=== PATIENT | female | born 2005 | race Hispanic/Latino ===

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

== ENCOUNTER 2025-08-29 22:17 | Emergency (ER) | payer SELFPAY ==
[~2025-08-29] VITALS: Ht 162.6 cm; Wt 104.3 kg
[2025-08-29] MEDS: NEOMY SULF/BACITRA/POLYMYXIN B 1 EACH PACKET TP ONE (22:58)
[2025-08-29] MEDS: HYDROcodone/APAP 5/325 1 TAB TABLET PO ONE (22:58)
--- NOTE | 2025-08-29 22:58 | NUR ---
WOUND CARE DONE AT BEDSIDE ORDERED BY ED ROMI MOLINA
--- NOTE | 2025-08-29 23:27 | ERN ---
ED Note History of Present Illness Stated Complaint: C/O LEFT ANKLE,ABRASION TO RT KNEE AFTER FALL Chief Complaint: Mechanical Fall Time Seen by MD: 22:23 Time Seen by Midlevel: 22:23 Dictation: The patient is a 20-year-old female with no past medical history who presents to the emergency department with complaints of left ankle pain and right knee pain after an accidental fall. Patient reports she was playing basketball and landed wrong on her left ankle causing it to twist and then falling to her right knee. Patient denies any head trauma, denies any LOC, denies any other injury. Allergies: Coded Allergies: No Known Drug Allergies (Verified Allergy, 11/13/12) Home Meds Active Scripts Naproxen (Naproxen) 250 Mg Tablet, 250 MG PO BID for 10 Days, #20 TAB Prov:ROBERTO FREEDMAN MD 06/09/24 Past Medical History Past Medical History: No Pertinent History Surgical History: Appendectomy, Social History: Negative, Lives with family History: Not Applicable LMP: Aug 24, 2025 : 2 Para: 2 RN Note Reviewed/Agreed w/PFSH: Yes Review of System Dictation Constitutional: Negative for fever,chills, and weight loss Eyes: Negative for injury, pain,redness, and discharge ENT: Negative for injury,pain or swelling Cardiovascular: Negative for chest pain, palpitations, and edema Respiratory: Negative for shortness of breath, cough, and wheezing, Abdomen/GI: Negative for abdominal pain, nausea, vomiting, diarrhea, and constipation Back: Negative for injury and pain : Negative for injury, bleeding and discharge MS/Extremity: Negative for injury and deformity positive for left ankle pain, right knee pain Skin: Negative for rash, and discoloration positive for abrasion to right knee Neuro: Negative for headache, weakness, numbness, tingling, and seizure Psych: Negative for suicide ideation, homicidal ideation, and hallucinations Initial Vital Sign VS Vital Signs Date Time Temp Pulse Resp B/P (MAP) Pulse Ox O2 Delivery O2 Flow Rate FiO2 08/29/25 22:19 99.3 108 20 129/77 99 Room Air 08/29/25 22:54 0 21 Physical Exam Dictation Vital Signs reviewed General Appearance: Alert, oriented x 3, no acute distress, well developed, nourished. Head and Face: non-traumatic. Eyes: PERRL, pink conjunctivas, eyelid no trauma, anterior chamber with arcus senilis. Ears: Pinnas intact and no signs of trauma or erythema ear canals clear and no discharge TM no erythema Nose: No discharge, no bleeding. Oropharynx: Mouth normal, tongue pink. pharynx clear,no erythema, tonsils no exudates, no abscesses noted, mucous membrane moist Neck: Supple, non-tender, no thyromegaly, no masses, no JVD, no bruits Breast:Deferred Chest:No tenderness, no crepitus, no paradoxical movement, no retractions Lungs:Clear, well-ventilated, symmetric, no rales, no wheezing, no rhonchi, no stridor, good breath sounds bilaterally Heart: Regular rate, regular rhythm, no murmur, no gallops Vascular: no peripheral edema, dorsalis pedis 3+ bilaterally Abdomen: Soft, positive bowel sounds, nondistended, no guarding, nontender, no rebound, no masses no hepatomegaly, no splenomegaly, no Ball's sign, no hernias. Rectal: Deferred Genital: Deferred Neurological: Normal speech, motor function intact, sensory function intact Musculoskeletal: Neck nontender, full range of motion, back nontender, full range of motion, mild swelling to left outer ankle, no open wounds, cap refill less than 2 seconds Extremities: nontender, full range of motion Skin: Color pink, dry, no turgor, no rash, no lacerations, no contusions. Small abrasion to right knee Lymphatic: Deferred Results (Laboratory/Radiology) Laboratory/Radiology REASON: fall ORDERING PHYSICIAN: JESSE BULLARD [employer] BUFFER PROCEDURE: KNEE 3V RT - KNEE 3VWS RT EXAM: CR Right Knee, 3 views CLINICAL HISTORY: Pain. COMPARISON: None provided. FINDINGS: No acute fracture or aggressive appearing osseous lesion. Joint spaces are within normal limits. There is no joint effusion appreciated. The soft tissues are unremarkable. IMPRESSION: No acute bony abnormality is evident. /[place] REASON: fall ORDERING PHYSICIAN: JESSE BULLARD [employer] PROCEDURE: [id number] - ANKLE COMP 3VWS LT EXAM: CR Left Ankle, 3 views CLINICAL HISTORY: Fall. COMPARISON: None provided. FINDINGS: No acute fracture or aggressive appearing osseous lesion. Joint spaces are within normal limits. No radiographic evidence of joint effusion. Mild diffuse soft tissue swelling, more pronounced on the lateral aspect. IMPRESSION: No acute bony abnormality is evident on radiographic evaluation. Mild diffuse soft tissue swelling, more pronounced on the lateral aspect. /[place] Labs Reviewed?: Yes ED Course ED Course Orders Procedure Category Date Status Time Ankle Comp 3vws Lt RAD 08/29/25 Resulted 22:29 Knee 3vws Rt RAD 08/29/25 Resulted 22:29 ,Urine Test LAB 08/29/25 Logged 22:29 Hydrocodone/Apap PHA 08/29/25 Complete 5/325 ([place] 5/325mg) 22:30 Wound Care (Er) CPOE 08/29/25 Transmitted 22:29 Neomy PHA 08/29/25 Complete Sulf/Bacitra/Polymyxin 22:30 Apply Sean Wrap (Er) CPOE 08/29/25 Transmitted 23:22 Crutches W/Training CPOE 08/29/25 Transmitted (Er) 23:22 Current Medications Medications (Trade) Dose Ordered Sig/Roe Route PRN Reason Start Time Stop Time Status Last Admin Dose Admin Acetaminophen/ Hydrocodone Bitart (NORco 5/325MG) 1 tab ONCE ONCE PO 08/29/25 22:30 08/29/25 22:36 DC 08/29/25 22:58 Neomycin/ Polymyxin/ Bacitracin (Triple Antibiotic Ointment) 1 appl ONCE ONCE TP 08/29/25 22:30 08/29/25 22:36 DC 08/29/25 22:58 Vital Signs Date Time Temp Pulse Resp B/P (MAP) Pulse Ox O2 Delivery O2 Flow Rate FiO2 08/29/25 23:39 97.9 72 14 102/60 100 Room Air* 0 21 08/29/25 22:54 97.9 80 17 128/76 100 Room Air* 0 21 08/29/25 22:19 99.3 108 20 129/77 99 Room Air Medical Decision Making MDM The patient is a 20-year-old female with no past medical history who presents to the emergency department with complaints of left ankle pain and right knee pain after an accidental fall. Patient reports she was playing basketball and landed wrong on her left ankle causing it to twist and then falling to her right knee. Patient denies any head trauma, denies any LOC, denies any other injury. No obvious fracture seen on x-ray. Patient's wound was cleaned. Small abrasion to the right knee, no need for repair. Patient up-to-date with tetanus, she had a two years ago. Patient otherwise neurovascularly intact. Patient will be sent with the crutches and instructed to follow up with the ortho. Differential diagnosis: Ankle sprain, knee dislocation, knee contusion, ankle fracture Need for hospitalization: Patient does not meet criteria for hospitalization. There are no social concerns with this patient. DX & DISP Disposition: Discharge Departure Impression: Primary Impression: Left ankle sprain Additional Impression: Contusion of right knee Condition: Stable Additional Instructions: Your x-rays did not show any obvious fractures. Please follow up with your primary doctor in 1-2 days. Follow up with the ortho. Avoid any activity that can further caused injury. If anything worsens please return to ER. FOLLOW-UP WITH PRIMARY CARE PROVIDER IN 1 TO 2 DAYS. TAKE MEDICATIONS DIRECTED HERE IN THE EMERGENCY ROOM. OKAY TO CONTINUE HOME MEDICATIONS UNLESS OTHERWISE DISCUSSED DURING YOUR VISIT IN THE EMERGENCY ROOM TODAY. RETURN TO YOUR NEAREST EMERGENCY ROOM IF SYMPTOMS WORSEN OR IF THERE IS NO IMPROVEMENT. CALL 911 IF YOU NEED IMMEDIATE ASSISTANCE. TAKE TYLENOL [id number] NEEDED AND IF NO CONTRAINDICATIONS ARE PRESENT. INCREASE ORAL HYDRATION. A WOUND CULTURE OR URINE CULTURE WAS ORDERED HERE IN THE EMERGENCY ROOM DEPARTMENT PLEASE FOLLOW-UP WITH PRIMARY CARE PROVIDER AND ADVISE THEM TO GET REPEAT PORTS FROM OUR FACILITY. IF YOU HAD ANY SEAN WRAP/SPLINTS THAT WERE APPLIED HERE, PLEASE DO NOT REMOVE THEM UNTIL YOU SEE YOUR PRIMARY CARE OR SPECIALTY. Referrals: SELF,REFERRAL (PCP) KIMBERLEE SAMUELS MD Time of Disposition: 23:27 I have reviewed the case, and I agree with, Diagnosis and Plan JESSE BULLARD Aug 29, 2025 23:27
--- NOTE | 2025-08-29 23:32 | HMCIMG ---
EXAM: CR Right Knee, 3 views CLINICAL HISTORY: Pain. COMPARISON: None provided. FINDINGS: No acute fracture or aggressive appearing osseous lesion. Joint spaces are within normal limits. There is no joint effusion appreciated. The soft tissues are unremarkable. IMPRESSION: No acute bony abnormality is evident. /[place]
[2025-08-29 23:39] VITALS: BP 102/60; PULSE 72; RESP 14; TEMP 97.9; O2SAT 100
--- NOTE | 2025-08-29 23:44 | HMCIMG ---
EXAM: CR Left Ankle, 3 views CLINICAL HISTORY: Fall. COMPARISON: None provided. FINDINGS: No acute fracture or aggressive appearing osseous lesion. Joint spaces are within normal limits. No radiographic evidence of joint effusion. Mild diffuse soft tissue swelling, more pronounced on the lateral aspect. IMPRESSION: No acute bony abnormality is evident on radiographic evaluation. Mild diffuse soft tissue swelling, more pronounced on the lateral aspect. /[place]
--- NOTE | 2025-08-29 23:49 | NUR ---
KYLE WRAP APPLIED TO LEFT ANKLE ORDERED BY ROMI MOLINA
--- NOTE | 2025-08-29 23:50 | NUR ---
PT EDUCATED ON THE PROPER USE OF CRUTCHES BY ED RN. PT DEMOSTRATED PROPER USE OF CRUTCHES WITH STEADY AND EVEN GAIT. PT VERBALIZED UDERSTANDING OF THE IMPORTANCE OF THE PROPER USE OF CRUTCHES TO PREVENT ANY POSSIBLE INJURIES.
== END 2025-08-29 23:53 | disposition home or self-care (01) ==
LOC: EDH 22:17
DX: S93.402A Sprain of unspecified ligament of left ankle, initial encounter (principal); S80.01XA Contusion of right knee, initial encounter; Z90.49 Acquired absence of other specified parts of digestive tract; Z98.890 Other specified postprocedural states; W01.0XXA Fall on same level from slipping, tripping and stumbling without subsequent striking against object, initial encounter; Y93.67 Activity, basketball; Y92.89 Other specified places as the place of occurrence of the external cause; Y99.8 Other external cause status
CPT/HCPCS: 73562; 73610; 99284